=== PATIENT | female | born 1960 | race African-American/Black ===

== ENCOUNTER 2016-04-11 11:31 | Emergency (ER) | payer OTHER ==
[~2016-04-11] VITALS: Ht 165.1 cm; Wt 46.6 kg
[~2016-04-11 11:31] MED LIST: ASPIRIN325 MG PO; KEFLEX500 MG PO; LEVAQUIN500 MG PO; MEDROL DOSEPAK4 MG PO; PERCOCET 5/31 TABLET PO; PROAIR HFA8.5 GM IH
[2016-04-11 11:32] VITALS: BP 120/75
[2016-04-11] MEDS ORDERED: PERCOCET 5/31 TABLET PO (13:22)
== END 2016-04-11 14:06 | disposition home or self-care (01) ==
LOC: EME 11:31
PROC: 2W3EX1Z Immobilization of Right Hand using Splint (ICD-10-PCS; principal; 2016-04-11)
DX: S62.306A Unspecified fracture of fifth metacarpal bone, right hand, initial encounter for closed fracture (principal); Z91.041 Radiographic dye allergy status; Y04.8XXA Assault by other bodily force, initial encounter
CPT/HCPCS: 73130; 99281; 99283

== ENCOUNTER 2016-08-16 11:37 | Emergency (ER) | payer OTHER ==
[~2016-08-16] VITALS: Ht 165.1 cm; Wt 46.4 kg
[2016-08-16] MEDS ORDERED: NAPROSYN500 MG PO (13:15)
[2016-08-16 13:49] VITALS: BP 93/58
== END 2016-08-16 13:50 | disposition home or self-care (01) ==
LOC: EME 11:37
DX: S93.601A Unspecified sprain of right foot, initial encounter (principal); W19.XXXA Unspecified fall, initial encounter; M25.571 Pain in right ankle and joints of right foot; F17.200 Nicotine dependence, unspecified, uncomplicated
CPT/HCPCS: 73610; 73630; 99281; 99284

== ENCOUNTER 2016-10-02 07:23 | Emergency (ER) | payer OTHER ==
[~2016-10-02] VITALS: Ht 165.1 cm; Wt 45.3 kg
[~2016-10-02 07:23] MED LIST changes: +NAPROSYN500 MG PO
[2016-10-02] MEDS ORDERED: NAPROSYN500 MG PO (08:51)
[2016-10-02 09:00] VITALS: BP 101/57
== END 2016-10-02 09:01 | disposition home or self-care (01) ==
LOC: EME 07:23
DX: S20.212A Contusion of left front wall of thorax, initial encounter (principal); Y04.8XXA Assault by other bodily force, initial encounter
CPT/HCPCS: 71020; 93005; 99281; 99283